=== PATIENT | female | born 1960 | race Caucasian/White ===

== ENCOUNTER 2018-08-05 08:25 | Day surgery (SDC) | payer MEDICAID, SELFPAY ==
[2018-08-05] VITALS (7 sets, daily range): BP systolic 119–131; BP diastolic 71–76; PULSE 68–77; RESP 16; TEMP 36.2–36.6; O2SAT 93–100; BMI 28.2
--- NOTE | 2018-08-05 09:50 | RAD_ITS ---
PROCEDURE: Bilateral L4-S1 facet injection. DATE OF EXAMINATION: August 05, 2018. INDICATION: Female, 58 years old. Low back pain. FLUOROSCOPY TIME (if supplied): (0:23) minutes/seconds. 6 intraoperative views were obtained. Intraoperative imaging provided for bilateral L4 S1 facet injection. RAD/L/S Spine Min 4 Views IMPRESSION: Intraoperative imaging provided for bilateral L4 S1 facet joint injection. Electronically Signed: Rafy Brown, at 12:38 EDT , Service support ,
[2018-08-05] MEDS: MethylPREDNISolone Acetate 80 MG/ML Vial (10:00)
[2018-08-05] MEDS: Bupivacaine 0.25% 30 ML Vial (10:00)
--- NOTE | 2018-08-05 12:28 | PCM.OPRPT ---
Problem List (1) Degeneration of intervertebral disc of lumbosacral region Status: Chronic (2) Spondylosis of lumbosacral region without myelopathy or radiculopathy Status: Chronic Report of Operation Date of Procedure: 08/05/18 Pre-Operative Diagnosis: Lumbosacral spondylosis, lumbosacral degenerative disc disease, lumbar facet arthropathy Post-Operative Diagnosis: Lumbosacral spondylosis, lumbosacral degenerative disease, lumbar facet arthropathy Surgery/Procedure Performed:: Bilateral lumbar facet steroid injection L4, L5, S1 Description of Surgical Findings:: PROCEDURE: Bilateral lumbar facet steroid injection L4, L5, S1 PREOPERATIVE DIAGNOSIS: Lumbosacral spondylosis, lumbosacral degenerative disc disease, and lumbar facet arthropathy POSTOPERATIVE DIAGNOSIS: Lumbosacral spondylosis, lumbosacral degenerative disc disease, and lumbar facet arthropathy ANESTHESIA: MAC COMPLICATIONS: None BLOOD LOSS: Minimal PROCEDURE IN DETAIL: History and physical today was reviewed. Risks and benefits of the procedure were explained. The patient understood, agreed to our procedure, and informed consent was obtained. IV inserted per routine protocol. The patient was taken to the operating room, placed in a prone position with a pillow positioned underneath the abdomen. The right side of his lower back was prepped and draped in a sterile fashion using iodine x3. Under fluoroscopy guidance, on AP view, L4 through S1 vertebral bodies were visualized. Skin and subcutaneous tissues were anesthetized with approximately 5 mL of 1% lidocaine using a 25-gauge regular needle. Under direct visualization with fluoroscopy at approximately 25-degree angle, starting on the left L4, ending on the right L4, passing through the L5 and S1 bilaterally using a 22-gauge 3 1/2-inch spinal needle, the needle was advanced via the skin. The tip of the needle was maneuvered and directed towards the superior and medial gutter of the transverse process at the vicinity of the medial branch. Once the tip of the needle was in contact with the bone, the needle pulled approximately 2 mm off the bone. After negative aspiration of blood with CSF and confirmation of AP as well as oblique view, a total of 12 mL of preservative-free 0.25% Marcaine with 80 mg of Depo-Medrol was injection in divided doses between those 6 levels. The needles were then removed intact. The patient experienced no signs or symptoms intrathecal, intravascular injection. The patient experienced no paraesthesia. The procedure was completed without any apparent difficult, any complication. The patient appeared to tolerate well. ASSESSMENT AND PLAN: This is a 58-year-old female with lumbosacral spondylosis, lumbosacral degenerative disc disease , and lumbar facet arthropathy, status post bilateral lumbar facet steroid injection L4 through S1. The patient will continue her current medications. The patient will follow in approximately 2 weeks for reevaluation.
--- NOTE | 2018-08-05 12:31 | OP.PCM_ITS ---
Problem List (1) Degeneration of intervertebral disc of lumbosacral region Status: Chronic (2) Spondylosis of lumbosacral region without myelopathy or radiculopathy Status: Chronic Report of Operation Date of Procedure: 08/05/18 Pre-Operative Diagnosis: Lumbosacral spondylosis, lumbosacral degenerative disc disease, lumbar facet arthropathy Post-Operative Diagnosis: Lumbosacral spondylosis, lumbosacral degenerative disease, lumbar facet arthropathy Surgery/Procedure Performed:: Bilateral lumbar facet steroid injection L4, L5, S1 Description of Surgical Findings:: PROCEDURE: Bilateral lumbar facet steroid injection L4, L5, S1 PREOPERATIVE DIAGNOSIS: Lumbosacral spondylosis, lumbosacral degenerative disc disease, and lumbar facet arthropathy POSTOPERATIVE DIAGNOSIS: Lumbosacral spondylosis, lumbosacral degenerative disc disease, and lumbar facet arthropathy ANESTHESIA: MAC COMPLICATIONS: None BLOOD LOSS: Minimal PROCEDURE IN DETAIL: History and physical today was reviewed. Risks and benefits of the procedure were explained. The patient understood, agreed to our procedure, and informed consent was obtained. IV inserted per routine protocol. The patient was taken to the operating room, placed in a prone position with a pillow positioned underneath the abdomen. The right side of his lower back was prepped and draped in a sterile fashion using iodine x3. Under fluoroscopy guidance, on AP view, L4 through S1 vertebral bodies were visualized. Skin and subcutaneous tissues were anesthetized with approximately 5 mL of 1% lid ocaine using a 25-gauge regular needle. Under direct visualization with fluoroscopy at approximately 25-degree angle, starting on the left L4, ending on the right L4, passing through the L5 and S1 bilaterally using a 22-gauge 3 1/2-inch spinal needle, the needle was advanced via the skin. The tip of the needle was maneuvered and directed towards the superior and medial gutter of the transverse process at the vicinity of the medial branch. Once the tip of the needle was in contact with the bone, the needle pulled approximately 2 mm off the bone. After negative aspiration of blood with CSF and confirmation of AP as well as oblique view, a total of 12 mL of preservative-free 0.25% Marcaine with 80 mg of Depo- Medrol was injection in divided doses between those 6 levels. The needles were then removed intact. The patient experienced no signs or symptoms intrathecal, intravascular injection. The patient experienced no paraesthesia. The procedure was completed without any apparent difficult, any complication. The patient appeared to tolerate well. ASSESSMENT AND PLAN: This is a 58-year-old female with lumbosacral spondylosis, lumbosacral degenerative disc disease , and lumbar facet arthropathy, status post bilateral lumbar facet steroid injection L4 through S1. The patient will continue her current medications. The patient will follow in approximately 2 weeks for reevaluation.
== END 2018-08-05 10:58 | disposition home or self-care (01) ==
LOC: SDC 08:25 → AC 08:28
PROVIDERS: Family Provider Family Medicine; PCP Family Medicine; Referring Provider Anesthesiology Pain Medicine; Visit Provider Anesthesiology Pain Medicine
PROC: 3E0T3BZ Introduction of Anesthetic Agent into Peripheral Nerves and Plexi, Percutaneous Approach (ICD-10-PCS; CPT 64493; principal; 2018-08-05 09:45)
DX: M47.817 Spondylosis without myelopathy or radiculopathy, lumbosacral region (principal); M51.37 Other intervertebral disc degeneration, lumbosacral region; M46.86 Other specified inflammatory spondylopathies, lumbar region; I10 Essential (primary) hypertension; K21.9 Gastro-esophageal reflux disease without esophagitis; F32.9 Major depressive disorder, single episode, unspecified; F41.9 Anxiety disorder, unspecified; M06.9 Rheumatoid arthritis, unspecified; F17.210 Nicotine dependence, cigarettes, uncomplicated; Z79.891 Long term (current) use of opiate analgesic; Z79.899 Other long term (current) drug therapy
CPT/HCPCS: 64493; 64494; 64483; 72110; J7120

== ENCOUNTER 2018-10-07 08:52 | Day surgery (SDC) | payer MEDICAID, SELFPAY ==
[2018-08-05 08:54] VITALS: BMI 28.2
[2018-10-07 09:12] VITALS: BP 124/77; PULSE 76; RESP 16; TEMP 36.6; O2SAT 96; BMI 26.9
--- NOTE | 2018-10-07 10:10 | RAD_ITS ---
STUDY: L3-S1 RIGHT SIDED RADIO FREQUENCY ABLATION REASON FOR EXAM: Female, 58 years old. Back pain FLUOROSCOPY TIME (if supplied): (0:27) minutes/seconds TECHNIQUE: Intraoperative fluoroscopy COMPARISON: None. FINDINGS: Intraoperative imaging provided for L3-S1 radiofrequency ablation on the right. RAD/L/S Spine Min 4 Views IMPRESSION: As above Electronically Signed: Jimbo Perez MD at 14:39 EDT Tel [phone], Service support ,
[2018-10-07] MEDS: MethylPREDNISolone Acetate 80 MG/ML Vial (10:18)
[2018-10-07] MEDS: Bupivacaine 0.25% 30 ML Vial (10:18)
[2018-10-07 10:29] VITALS: BP 123/89; BP 124/77; PULSE 63; RESP 16; TEMP 36.3; O2SAT 100
[2018-10-07 10:34] VITALS: BP 124/70; BP 124/77; PULSE 65; RESP 16; O2SAT 97
[2018-10-07 10:39] VITALS: BP 111/64; BP 124/77; PULSE 66; RESP 16; O2SAT 97
[2018-10-07 10:45] VITALS: BP 124/77; BP 132/72; PULSE 67; RESP 16; TEMP 36.2; O2SAT 95
[2018-10-07 10:58] VITALS: BP 124/77
--- NOTE | 2018-10-07 17:30 | PCM.OPRPT ---
Problem List (1) Degeneration of intervertebral disc of lumbosacral region Status: Chronic (2) Spondylosis of lumbosacral region without myelopathy or radiculopathy Status: Chronic Report of Operation Date of Procedure: 10/07/18 Description of Surgical Findings:: PROCEDURE: Right-sided lumbar radiofrequency ablation of the medial branch L3, L4, L5, S1 PREOPERATIVE DIAGNOSES: Lumbosacral spondylosis, lumbosacral degenerative disc disease, lumbar facet arthropathy POSTOPERATIVE DIAGNOSES: Lumbosacral spondylosis, lumbosacral degenerative disc disease, lumbar facet arthropathy ANESTHESIA: MAC COMPLICATIONS: None BLOOD LOSS: Minimal PROCEDURE IN DETAIL: History and physical today was reviewed. Risks and benefits of procedure explained. The patient understood, agreed to the procedure and informed consent was obtained. IV inserted per routine protocol. The patient was taken to the operating room, placed in the prone position with a pillow positioned underneath the abdomen. The right side of the lower back was prepped and draped in a sterile fashion using iodine x 3. Under fluoroscopy guidance, on an oblique view, the L3 through S1 vertebral bodies were visualized. The skin and subcutaneous tissue was anesthetized with approximately 10 mL of 1% lidocaine using a 25-gauge regular needle. Under direct visualization with fluoroscopy at approximately 25-degree angle, starting on the right L3, ending on the right S1 passing through the L4-L5 using a 20-gauge 15 cm with a 10 mm curved active tip radiofrequency ablation needle the needle passed through the skin. The tip of the needle was maneuvered and directed towards the superior and medial gutter of the transverse process at the vicinity of the medial branch. Once the tip of the needle was in contact with the bone, the needle pulled approximately 2 mm up the bone. The stylet of each needle was then removed. After negative aspiration of blood with CSF and confirmation of AP as well as oblique view, radiofrequency ablation probe was then inserted at each level. Impedance was then recorded at L3 to be 219, at L4 309, at L5 207, at S1 272 ohm. Motor-evoked potential was then initiated to 1.5 volt without any motor response at each corresponding level. The probe was then removed intact and a total of 6 mL preservative-free 1% lidocaine was injected in divided doses between those 4 levels after negative aspiration of blood with CSF. The radiofrequency ablation probe was then reinserted after confirmation of AP, oblique as well as lateral view. Radiofrequency ablation was then initiated to 80 degrees Celsius for 90 seconds at each level. Once concluded, the probe was then removed intact and a total of 6 mL of preservative-free 0.25% Marcaine with 40 mg Depo-Medrol was injected in divided doses between those 4 levels. The needles were then removed intact. The patient experienced no signs or symptoms of intrathecal, intravascular injection. The patient experienced no paraesthesia. The procedure was completed without any apparent difficulty, any complication. The patient appeared to tolerate well. Sensory as well as motor exam was unchanged from prior to procedure. ASSESSMENT AND PLAN: This is a 58-year-old female with lumbosacral spondylosis, lumbosacral degenerative disc disease, lumbar facet arthropathy, status post right-sided radiofrequency ablation of the medial branch L3 through S1. The patient will continue her current medications. The patient will follow up in approximately 2 weeks for reevaluation.
== END 2018-10-07 10:59 | disposition home or self-care (01) ==
LOC: SDC 08:53 → AC 08:55
PROVIDERS: Family Provider Family Medicine; PCP Family Medicine; Referring Provider Anesthesiology Pain Medicine; Visit Provider Anesthesiology Pain Medicine
PROC: (CPT 64635; principal; 2018-10-07 10:05)
DX: M47.817 Spondylosis without myelopathy or radiculopathy, lumbosacral region (principal); M51.37 Other intervertebral disc degeneration, lumbosacral region; M46.96 Unspecified inflammatory spondylopathy, lumbar region; K21.9 Gastro-esophageal reflux disease without esophagitis; F32.9 Major depressive disorder, single episode, unspecified; F41.9 Anxiety disorder, unspecified; I10 Essential (primary) hypertension; G25.81 Restless legs syndrome; M06.9 Rheumatoid arthritis, unspecified; M19.90 Unspecified osteoarthritis, unspecified site; F17.210 Nicotine dependence, cigarettes, uncomplicated; Z79.891 Long term (current) use of opiate analgesic; Z79.899 Other long term (current) drug therapy
CPT/HCPCS: 64635; 64636 ×2; 72110; 76000; J7120

== ENCOUNTER → 2019-04-29 11:58 | Outpatient (CLI) | payer OTHER, SELFPAY | PROVIDERS: PCP Family Medicine; Visit Provider Anesthesiology Pain Medicine | DX: Z53.9 Procedure and treatment not carried out, unspecified reason (principal) ==

== ENCOUNTER 2019-08-25 08:36 | Day surgery (SDC) | payer MEDICARE, SELFPAY ==
[2019-08-25] VITALS (10 sets, daily range): BP systolic 116–132; BP diastolic 60–90; PULSE 85–89; RESP 16–18; TEMP 36.2–36.6; O2SAT 98–100; BMI 28.3
[2019-08-25] MEDS: Lactated Ringers 1,000 ML 100 ML IV (09:10)
[2019-08-25] MEDS: Bupivacaine 0.25% 30 ML Vial (09:40)
[2019-08-25] MEDS: MethylPREDNISolone Acetate 80 MG/ML Vial (09:40)
--- NOTE | 2019-08-25 10:00 | RAD_ITS ---
PROCEDURE: Left L3-S1 radiofrequency ablation. DATE OF EXAMINATION: August 25, 2019. INDICATION: Female, 59 years old. Chronic back pain. FLUOROSCOPY TIME (if supplied): (26.5 seconds) minutes/seconds Intraoperative imaging provided for left L3-S1 radiofrequency ablation. RAD/L/S Spine Min 4 Views IMPRESSION: Intraoperative imaging provided for left L3-S1 radiofrequency ablation. Electronically Signed: Rafy Brown, at 15:28 EDT , Service support ,
--- NOTE | 2019-08-25 10:31 | PCM.OPRPT ---
Report of Operation Date of Procedure: 08/25/19 Description of Surgical Findings:: PREOPERATIVE DIAGNOSIS: Lumbosacral spondylosis, lumbosacral degenerative disc disease, lumbar facet arthropathy POSTOPERATIVE DIAGNOSIS: Lumbosacral spondylosis, lumbosacral degenerative disc disease, lumbar facet arthropathy PROCEDURE PERFORMED: Left-sided radiofrequency ablation of the medial branch at L3, L4, L5, and S1. ANESTHESIA: MAC. BLOOD LOSS: Minimal. COMPLICATIONS: None. DESCRIPTION OF PROCEDURE: History and physical of today was reviewed. Risks and benefits of the procedure were explained. The patient understood and agreed to proceed. Informed consent was obtained. IV inserted per routine protocol. The patient was taken to the operating room and placed in the prone position with a pillow positioned underneath the abdomen. The left side of her lower back was prepped and draped in a sterile fashion using iodine x3. Under fluoroscopy guidance in an oblique view, the L3 through S1 vertebral bodies were visualized. The skin and subcutaneous tissue was anesthetized with approximately 10 mL of 1% lidocaine using a 25-gauge regular needle. Under direct visualization on fluoroscopy at approximately 25-degree angle, starting on the left L3, ending on the left S1, passing through the L4 and L5, using a 20-gauge 15-cm with a 10-mm curved active-tip radiofrequency ablation needle, the needle was passed through the skin. The tip of the needle was maneuvered and directed towards the superior medial gutter of the transverse process at the vicinity of the medial branch. Once the tip of the needle was in contact with the bone, the needle was pulled approximately 2 mm off the bone. The stylette of each needle was then removed. After negative aspiration of blood or CSF and confirmation on AP, oblique as well as lateral view, the radiofrequency ablation probe was then inserted at each level. Impedance was then recorded at L3 to be 218 ohm, at L4 to be 253 ohm, at L5 to be 260 ohm, and at S1 to be 345 ohm. Motor evoked potential was then initiated to 1.5 volt without any motor response at each corresponding level. The probe was then removed intact and a total of 6 mL of preservative-free 1% lidocaine was injected in divided doses between those four levels after negative aspiration of blood or CSF. The radiofrequency ablation probe was then reinserted. After confirmation on AP, oblique as well as lateral view, radiofrequency ablation was then initiated to 80 degree Celsius for 90 second at each level. Once concluded, the probe was then removed intact. A total of 6 mL of preservative-free 0.25% Marcaine with 40 mg of Depo-Medrol was injected in divided doses between those four levels. The needles were then removed intact. The patient experienced no sign or symptoms of intrathecal or intravascular injection. The patient experienced no paresthesia. The procedure was completed without any apparent difficulty or any complications. The patient appeared to tolerate it well. Sensory as well as motor exam was unchanged from prior to the procedure. ASSESSMENT AND PLAN: This is a 59-year-old female with lumbosacral spondylosis, lumbosacral degenerative disc disease, lumbar facet arthropathy status post left-sided lumbar radiofrequency ablation of the medial branch L3-S1, patient will continue current medications, patient will follow approximately 2 weeks for reevaluation.
== END 2019-08-25 10:42 | disposition home or self-care (01) ==
LOC: SDC 08:39 → AC 08:40
PROVIDERS: PCP Family Medicine; Referring Provider Anesthesiology Pain Medicine; Visit Provider Anesthesiology Pain Medicine
PROC: (CPT 64635; principal; 2019-08-25 09:45)
DX: M47.817 Spondylosis without myelopathy or radiculopathy, lumbosacral region (principal); M51.37 Other intervertebral disc degeneration, lumbosacral region; M46.96 Unspecified inflammatory spondylopathy, lumbar region; K21.9 Gastro-esophageal reflux disease without esophagitis; F32.9 Major depressive disorder, single episode, unspecified; F41.9 Anxiety disorder, unspecified; I10 Essential (primary) hypertension; M19.90 Unspecified osteoarthritis, unspecified site; M06.9 Rheumatoid arthritis, unspecified; F17.210 Nicotine dependence, cigarettes, uncomplicated; Z79.891 Long term (current) use of opiate analgesic; Z79.899 Other long term (current) drug therapy
CPT/HCPCS: 01992; 64635; 64636 ×2; 72110; 76000; J7120

== ENCOUNTER 2019-11-24 08:10 | Day surgery (SDC) | payer MEDICARE, SELFPAY ==
[2019-08-25 09:00] VITALS: BMI 28.3
[2019-11-24] VITALS (10 sets, daily range): BP systolic 115–135; BP diastolic 58–105; PULSE 86–94; RESP 16–18; TEMP 36.2–36.8; O2SAT 95–100; BMI 31.7
[2019-11-24] MEDS: Lactated Ringers 1,000 ML 100 ML IV (09:05)
--- NOTE | 2019-11-24 09:16 | RAD_ITS ---
CLINICAL HISTORY: Female, 59 years old. Spinal canal stenosis. Lower back pain PROCEDURE: RADIO FREQUENCY ABLATION L3-S1 FLUOROSCOPY TIME (if supplied): (0:23) seconds estimated dose is 2.6 mGy , 2 views FINDINGS: A needle is seen extending to the pedicles L3-S1 RAD/L/S Spine Min 4 Views IMPRESSION: Successful radiofrequency ablation L3-S1 Electronically Signed: Demario Merritt, at 14:02 EDT Tel , Service support ,
[2019-11-24] MEDS: MethylPREDNISolone Acetate 80 MG/ML Vial (09:18)
[2019-11-24] MEDS: Bupivacaine 0.25% 30 ML Vial (09:18)
--- NOTE | 2019-11-24 16:46 | PCM.OPRPT ---
Report of Operation Date of Procedure: 11/24/19 Description of Surgical Findings:: PROCEDURE: Right-sided lumbar radiofrequency ablation of the medial branch L3, L4, L5, S1 PREOPERATIVE DIAGNOSES: Lumbosacral spondylosis, lumbosacral degenerative disc disease, lumbar facet arthropathy POSTOPERATIVE DIAGNOSES: Lumbosacral spondylosis, lumbosacral degenerative disc disease, lumbar facet arthropathy ANESTHESIA: MAC COMPLICATIONS: None BLOOD LOSS: Minimal PROCEDURE IN DETAIL: History and physical today was reviewed. Risks and benefits of procedure explained. The patient understood, agreed to the procedure and informed consent was obtained. IV inserted per routine protocol. The patient was taken to the operating room, placed in the prone position with a pillow positioned underneath the abdomen. The right side of the lower back was prepped and draped in a sterile fashion using iodine x 3. Under fluoroscopy guidance, on an oblique view, the L3 through S1 vertebral bodies were visualized. The skin and subcutaneous tissue was anesthetized with approximately 10 mL of 1% lidocaine using a 25-gauge regular needle. Under direct visualization with fluoroscopy at approximately 25-degree angle, starting on the right L3, ending on the right S1 passing through the L4-L5 using a 20-gauge 15 cm with a 10 mm curved active tip radiofrequency ablation needle the needle passed through the skin. The tip of the needle was maneuvered and directed towards the superior and medial gutter of the transverse process at the vicinity of the medial branch. Once the tip of the needle was in contact with the bone, the needle pulled approximately 2 mm up the bone. The stylet of each needle was then removed. After negative aspiration of blood with CSF and confirmation of AP as well as oblique view, radiofrequency ablation probe was then inserted at each level. Impedance was then recorded at L3 to be 229, at L4 224, at L5 264, at S1 397 ohm. Motor-evoked potential was then initiated to 1.5 volt without any motor response at each corresponding level. The probe was then removed intact and a total of 6 mL preservative-free 1% lidocaine was injected in divided doses between those 4 levels after negative aspiration of blood with CSF. The radiofrequency ablation probe was then reinserted after confirmation of AP, oblique as well as lateral view. Radiofrequency ablation was then initiated to 80 degrees Celsius for 90 seconds at each level. Once concluded, the probe was then removed intact and a total of 6 mL of preservative-free 0.25% Marcaine with 40 mg Depo-Medrol was injected in divided doses between those 4 levels. The needles were then removed intact. The patient experienced no signs or symptoms of intrathecal, intravascular injection. The patient experienced no paraesthesia. The procedure was completed without any apparent difficulty, any complication. The patient appeared to tolerate well. Sensory as well as motor exam was unchanged from prior to procedure. ASSESSMENT AND PLAN: This is a 59-year-old Female with lumbosacral spondylosis, lumbosacral degenerative disc disease, lumbar facet arthropathy, status post right-sided lumbar radiofrequency ablation of the medial branch L3 through S1. The patient will continue her current medications. The patient will follow up in approximately 2 weeks for reevaluation.
== END 2019-11-24 10:20 | disposition home or self-care (01) ==
LOC: SDC 08:12 → AC 08:13
PROVIDERS: PCP Family Medicine; Referring Provider Anesthesiology Pain Medicine; Visit Provider Anesthesiology Pain Medicine
PROC: (CPT 64635; principal; 2019-11-24 09:25)
DX: M47.817 Spondylosis without myelopathy or radiculopathy, lumbosacral region (principal); M51.37 Other intervertebral disc degeneration, lumbosacral region; F41.9 Anxiety disorder, unspecified; F32.9 Major depressive disorder, single episode, unspecified; K21.9 Gastro-esophageal reflux disease without esophagitis; Z79.899 Other long term (current) drug therapy; I10 Essential (primary) hypertension; G25.81 Restless legs syndrome; F17.210 Nicotine dependence, cigarettes, uncomplicated; Z79.891 Long term (current) use of opiate analgesic; G89.29 Other chronic pain
CPT/HCPCS: 64635; 64636 ×3; 72110; 76000; J7120